=== PATIENT | male | born 1975 | race Caucasian/White ===

== ENCOUNTER 2022-11-26 08:27 | Outpatient (CLI) | payer OTHER, SELFPAY ==
[2022-11-26 15:26] LABS: Cholesterol* 235 mg/dL (90-199); Glucose* 113 mg/dL (60-115); HDL Cholesterol* 82 mg/dL (>=40); LDL Cholesterol Calculated 142 mg/dL (<100); Triglycerides* 56 mg/dL (40-149)
== END 2022-11-26 08:28 | disposition home or self-care (01) ==
PROVIDERS: PCP Nurse Practitioner Family; Visit Provider Nurse Practitioner Family
DX: Z13.1 Encounter for screening for diabetes mellitus (principal); Z13.6 Encounter for screening for cardiovascular disorders
CPT/HCPCS: 80061; 82947

== ENCOUNTER 2023-01-21 08:54 | Outpatient (CLI) | payer OTHER, SELFPAY | END 2023-01-21 08:55 | disposition home or self-care (01) | PROVIDERS: PCP Nurse Practitioner Family; Visit Provider Surgery | DX: Z12.11 Encounter for screening for malignant neoplasm of colon (principal); K63.5 Polyp of colon; Z83.71 Family history of colonic polyps | CPT/HCPCS: 45385; 88305; J1200; J2250; J3010 ==

== ENCOUNTER 2023-07-19 08:59 | Outpatient (CLI) | payer OTHER, SELFPAY ==
--- NOTE | 2023-07-19 09:15 | MR_ITS ---
[address] [address] Phone:?[phone] Fax:?[phone] Referring Physician Information: Danay Morris [address] [facility] [address] Phone:?[phone] Fax:?[phone] Patient:?Ghulam Hassan D.O.B:?1975 Sex:?Male Phone:?[phone] [facility] MRN:?[id number] Exam Date:?07/19/2023 EXAM: MRI OF THE RIGHT KNEE CLINICAL INFORMATION: The patient is a 48-year-old with right knee pain. Evaluate for MCL tear. Evaluate for tibial spine avulsion. Evaluate for meniscal tear. PRIOR SURGERY: None reported. COMPARISON STUDIES: There are no prior studies available for comparison. TECHNICAL INFORMATION: Imaging was performed on a high-field, 1.5 Bing MR scanner. Axial proton-density and fat-suppressed T2 imaging of the right knee was performed in addition to coronal proton-density and coronal STIR imaging. Sagittal proton-density and fat-suppressed proton-density imaging was also produced. FINDINGS: Articular/Extraarticular collections: Effusion: Moderate to large. Low signal intensity material within the joint space can be seen, in keeping with intra-articular hemorrhage. Popliteal cyst: Small to moderate, seen on sagittal series 6 image 24. Loose bodies: No well-defined intra-articular loose bodies are noted. Subcutaneous and extraarticular soft tissues: Subcutaneous soft tissue edema and/or hemorrhage can be seen circumferentially about the right knee. Osseous structures: There are fractures involving the right proximal tibia, including the tibial spine region as well as involving the medial tibial plateau on coronal series 8 image 20 and on sagittal series 6 image 19. The broad-based area of proximal tibial fracture measures approximately 3.8 cm in anteroposterior dimension, 3.8 cm in mediolateral dimension, and 2.1 cm in craniocaudal dimension. The fracture involves the ACL and PCL insertion sites. The fracture also disrupts the articular surfaces of the medial tibial plateau, however no well-defined step- off along the articular surfaces can be seen. Involvement of the far medial aspect of the lateral tibial plateau can be seen on coronal series [address] scanning may be helpful in further evaluation of the proximal tibial fracture. Moderate marrow edema can be seen. Additional marrow edema and subcortical fracture can be seen involving the far posterior aspect of the lateral femoral condyle on sagittal series 6 image 9 and on sagittal series 5 image 9 with the area of subcortical fracture measuring 9 mm in greatest dimension. No depression or displacement along the articular surfaces can be seen. No other bony abnormalities about the knee are noted. Ligamentous structures: ACL: The ACL fibers appear intact, however there is a fracture of the tibia involving the ACL insertion on sagittal series 6 image 16. No transverse disruption of ACL fibers is noted. No definite displacement of the tibial spines can be seen. PCL: No evidence for disruption of PCL fibers can be seen, however the fracture of the proximal tibia involves the PCL insertion site. MCL: There is a grade 3 sprain of the MCL with areas of full-thickness tearing involving the proximal and mid portions on coronal series 8 image 7. Additional soft tissue edema and/or hemorrhage can be seen along the medial aspect of the knee and this region. LCL: Intact and normal in appearance. Posterolateral corner: Intact and normal in appearance. Posteromedial corner: No posteromedial corner soft tissue injury. Semimembranosus and pes anserine tendons demonstrate no tendinopathy or associated bursitis. Extensor mechanism/Patellar retinacular structures: Patellar tendon: Intact, without tendinopathy. Quadriceps tendon: Intact, without tendinopathy. Retinacula: The medial and lateral retinacula are intact. The medial patellofemoral ligament is intact. Medial compartment: Medial meniscus: No evidence for medial meniscal tearing can be seen. There is no evidence for parameniscal cyst formation. No meniscocapsular separation injury is identified. Medial femoral condyle: No chondromalacia, chondral defect, or osteochondral abnormality. Medial tibial plateau: There is focal disruption of the articular surfaces of the medial tibial plateau in the region of the fracture described above, however no larger, more well-defined chondral defects along the articular surfaces can be seen. Lateral compartment: Lateral meniscus: No evidence for lateral meniscal tearing is present. No evidence for parameniscal cyst formation can be seen. Lateral femoral condyle: No chondromalacia, chondral defect, or osteochondral abnormality. Lateral tibial plateau: Disruption of the articular cartilage of the lateral tibial plateau can be seen in the region of the fracture described above. No larger, more well-defined full-thickness chondral defects along the articular surfaces are noted. 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 Additional grade II chondromalacia of the medial and lateral patellar facets can be seen. Trochlea: No chondromalacia, chondral defect, or osteochondral abnormality. Neurovascular: No definite neurovascular abnormalities are seen. CONCLUSION: 1. Fracture involving the proximal tibia, including the tibial spines as well as the medial and lateral tibial plateaus. There is involvement of the ACL and PCL insertion sites. CT scanning may be helpful in further evaluation. 2. No well-defined transverse disruption of ACL or PCL fibers can be seen, however a grade 3 MCL sprain is present as described above. 3. No well-defined medial or lateral meniscal tearing is seen. 4. 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 5. Moderate to large knee joint effusion with intra-articular hemorrhage. 6. [id number] popliteal cyst. [facility] Electronically signed on 07/19/2023 1:09:00 PM by Enrrique Schilling M.D.
== END 2023-07-19 09:00 | disposition home or self-care (01) ==
LOC: MRI 09:01
PROVIDERS: PCP Nurse Practitioner Family; Visit Provider Physician Assistant Surgical
DX: M25.561 Pain in right knee (principal); S83.411A Sprain of medial collateral ligament of right knee, initial encounter; S82.101A Unspecified fracture of upper end of right tibia, initial encounter for closed fracture; M25.461 Effusion, right knee; M71.21 Synovial cyst of popliteal space [Baker], right knee; M22.41 Chondromalacia patellae, right knee
CPT/HCPCS: 73721

== ENCOUNTER 2023-08-26 13:46 | Outpatient (CLI) | payer OTHER, SELFPAY ==
--- NOTE | 2023-08-26 14:00 | CRLHL7_ITS ---
For Patients: As a result of the Century Cures Act, medical imaging exams and procedure reports are released immediately into your electronic medical record. You may view this report before your referring provider. If you have questions, please contact your health care provider. HISTORY: Right knee pain evaluate for fracture healing. FINDINGS: The knee was studied in the axial, coronal and sagittal planes. Again noted is a comminuted fracture of the proximal tibia isolating the tibial spines and a portion of the medial tibial plateau with displacement up to 5 mm. There is no evidence for bony union at this time. Dystrophic calcification is seen along the medial margin of the distal femoral metaphysis related to likely previous soft tissue injury. There are likely is several loose bodies seen in the central portion of the knee joint as noted on images 30-40 of series 6. No other fractures are noted. Moderate knee joint effusion is present. Extensor mechanism is intact. IMPRESSION: No findings for healing or bony union involving the known comminuted proximal tibial fracture. Please note that all CT scans at this facility use dose modulation, iterative reconstruction, and/or weight-based dosing when appropriate to reduce radiation dose to as low as reasonably achievable. Dictated by Isaiah Moran MD @ 08/27/2023 9:36:44 AM (Electronically Signed)
== END 2023-08-26 13:47 | disposition home or self-care (01) ==
LOC: CT 13:46
PROVIDERS: PCP Nurse Practitioner Family; Visit Provider Physician Assistant Surgical
DX: M25.561 Pain in right knee (principal); S82.101A Unspecified fracture of upper end of right tibia, initial encounter for closed fracture; S82.141A Displaced bicondylar fracture of right tibia, initial encounter for closed fracture; S83.411A Sprain of medial collateral ligament of right knee, initial encounter
CPT/HCPCS: 73700